=== PATIENT | male | born 1950 | race Caucasian/White ===

== ENCOUNTER → 2016-09-03 | Outpatient (CLI) | payer OTHER ==
[~2016-09-03] MED LIST: IPRA1AER2 INH; LCTX PO; LVQ750 PO; PRD20 PO; SYMIN160 INH
--- NOTE | 2016-09-03 12:48 | DIAGNOSTIC IMAGING REPORT ---
CHEST 2 VIEWS ROUTINE HISTORY: R91.1 Solitary pulmonary nodule COMPARISON: Chest 07/06/2014. FINDINGS: The lungs remain hyperexpanded with apical predominant emphysematous changes. No pleural effusion. No pneumothorax. The heart is normal in size. Linear densities within the left lower lobe remain unchanged and likely represent scarring. No new focal lung consolidations. There is again noted a pectus excavatum deformity. IMPRESSION: No significant change compared to the prior study. No acute process. However, if there is clinical concern for a pulmonary nodule, CT remains the test of choice. Electronically signed by: Senthil Alcala M.D. 09/03/2016 12:46 PM Dictated Date/Time: 09/03/2016 12:44 PM
== END | disposition home or self-care (01) ==
LOC: C.RAD1850 12:29
PROVIDERS: ATTEND Internal Medicine Pulmonary Disease
DX: R91.1 Solitary pulmonary nodule (principal)

== ENCOUNTER → 2017-04-27 | Outpatient (CLI) | payer OTHER ==
--- NOTE | 2017-04-27 14:28 | DIAGNOSTIC IMAGING REPORT ---
CT OF THE CHEST WITHOUT IV CONTRAST CLINICAL HISTORY: Shortness of breath. Solitary pulmonary nodule. COMPARISON STUDY: Chest CT July 06, 2014 and chest radiograph September 03, 2016. CT DOSE: 252.56 mGycm TECHNIQUE: Axial images of the chest were obtained without IV contrast. Images were reviewed in the axial, sagittal, and coronal planes. IV contrast was not administered for this examination. A dose lowering technique was utilized adhering to the principles of ALARA. FINDINGS: No enlarged axillary, mediastinal or hilar lymph nodes are present. The size of the heart is normal. There is no pericardial effusion. There is pectus excavatum deformity. Central airways are patent with the exception of mild mucus plugging within the right lower lobe segmental bronchi. Severe upper lobe predominant emphysema is noted. There is a 9 mm groundglass opacity within the left upper lobe shown on image 49 of 326. This is new since CT of July 06, 2014. There is subtle associated distortion. Band-like linear opacities within the right upper lobe are unchanged from earlier studies and reflects scarring. A 4 mm right lower lobe nodule shown on image 193 is unchanged. This is benign given stability. No consolidation to suggest pneumonia. No pneumothorax or pleural effusion is present. Subpleural opacities reflect atelectasis. No suspicious osseous lesions are present. A left hepatic lobe cyst is noted. Upper abdomen is otherwise unremarkable. IMPRESSION: 1. Interval development of a 9 mm groundglass opacity within the left upper lobe since CT of July 06, 2014. Scarring or a mild infectious process is favored. A developing neoplasm is considered less likely but could appear similar. A follow up chest CT in 6 months is recommended. 2. Severe emphysema. 3. No thoracic lymphadenopathy. Electronically signed by: Pradeep Zamora M.D. 04/27/2017 2:27 PM Dictated Date/Time: 04/27/2017 1:44 PM
== END | disposition home or self-care (01) ==
LOC: C.CTS 13:17
PROVIDERS: ATTEND Internal Medicine Critical Care Medicine
DX: R91.1 Solitary pulmonary nodule (principal); J43.9 Emphysema, unspecified

== ENCOUNTER → 2017-07-26 | Outpatient (CLI) | payer OTHER ==
--- NOTE | 2017-07-26 11:58 | DIAGNOSTIC IMAGING REPORT ---
(CHEST) THORAX WITHOUT CT DOSE: 257.81 mGy.cm HISTORY: Lung nodule R91.1 Solitary pulmonary nodulesched in JUL [id number] TECHNIQUE: Multiaxial CT images of the chest were performed without contrast. A dose lowering technique was utilized adhering to the principles of ALARA. COMPARISON: None. FINDINGS: Emphysematous changes again noted throughout both lungs. The small groundglass nodular density left upper lobe is slightly diminished in volume. Current maximum dimension is 5 mm. Patient has developed an interval focus of atelectasis versus nodularity measuring 8 mm superior right upper lobe, transaxial image 124. Calcified granulomas are similar. Chronic fibrotic change in both lung bases is unchanged.. There is a second IMPRESSION: 1. Variable parenchymal nodularity versus scattered atelectasis. 2. Previous described left upper lobe nodular densities moderately diminished in volume, with interval development of a least 2 right hemithoracic densities versus intermittent atelectasis. 3. A six-month follow-up is again recommended. The above report was generated using voice recognition software. It may contain grammatical, syntax or spelling errors. Electronically signed by: Gaetano Flores M.D. 07/26/2017 11:57 AM Dictated Date/Time: 07/26/2017 11:48 AM
== END | disposition home or self-care (01) ==
LOC: C.CTS 11:23
PROVIDERS: ATTEND Internal Medicine Critical Care Medicine
DX: R91.1 Solitary pulmonary nodule (principal)